=== PATIENT | male | born 1960 | race Asian ===

== ENCOUNTER → 2020-01-21 17:53 | Outpatient (CLI) | payer OTHER, SELFPAY ==
--- NOTE | 2020-01-21 17:57 | DI.MRI.S_ITS ---
PROCEDURE: MR KNEE LT WO CON INDICATIONS: UNILATERAL PRIMARY OSTEORHRITIS LEFT KNEE TECHNIQUE: Noncontrast sagittal PD fast spin echo and T2 fast spin echo with fat saturation, sagittal 3-D FLASH with fat saturation; coronal T1 spin echo and PD fast spin echo with fat saturation, and axial PD fast spin echo with fat saturation through the knee. COMPARISON: [facility], MR, KNEE WITHOUT CONTRAST, 11/29/2016, 12:06. FINDINGS: Image quality: Excellent. Menisci: There is signal abnormality and contour irregularity involving body and posterior horn of medial meniscus extending to both superior and inferior articulating surfaces suggestive of complex tear. Peripheral displacement of medial meniscus bowing medial collateral ligament is also seen. Oblique tear involving anterior horn of lateral meniscus is seen extending to inferior articulating surface. The meniscal root ligaments appear intact. Cruciate ligaments: The anterior and posterior cruciate ligaments appear intact. Medial structures: Low-grade MCL sprain is seen. The posterior oblique ligament, semimembranosus tendon insertions, oblique popliteal ligament, and meniscocapsular junction appear intact. Visualized portions of the pes anserinus tendons appear normal. No abnormal bursal fluid. Lateral structures: There is low to moderate grade LCL sprain/partial-thickness tear near its femoral insertion. The long and short heads of the biceps femoris tendon appear intact. The popliteus tendon appears normal; the popliteofibular ligament appears intact. The posterosuperior and anteroinferior popliteomeniscal fascicles appear intact. The arcuate and fabellofibular ligaments appear intact, on either side of the lateral inferior geniculate artery. Iliotibial band appears normal. Anterior structures: The quadriceps and patellar tendons appear intact. Patellar alignment is normal. No femoral trochlear dysplasia or ventral trochlear prominence. No edema in the infrapatellar fat pad. Bones and cartilage: Moderate tricompartmental osteoarthritis and chondromalacia is seen most prominent in medial femoral tibial compartment. No fracture or dislocation. Joint space: There is small amount of joint fluid. Small calcifications are seen in posterior aspect of knee joint and measures up to 1.4 x 0.9 cm in size suggestive of small loose bodies. No Landry's cyst. Normal appearing synovial plicae are incidentally noted. IMPRESSION: 1. Moderate tricompartmental osteoarthritis and chondromalacia of most prominent in medial femoral tibial compartment. No fracture or dislocation. Small amount of joint effusion. Suggestion of small intra-articular loose bodies in posterior aspect of knee joint as above. 2. Complex tear involving body and posterior horn of medial meniscus extending to both superior and inferior articulating surfaces. Oblique tear involving anterior horn of lateral meniscus extending to inferior articulating surface. 3. Cruciate ligaments are intact. Low-grade MCL sprain. Low to moderate grade proximal LCL sprain/partial-thickness tear. Dictated by: Luis Coffman M.D. on 01/24/2020 at 8:40 Approved by: Luis Coffman M.D. on 01/24/2020 at 8:54
== END ==
PROVIDERS: PCP Family Medicine; Referring Provider Orthopaedic Surgery; Visit Provider Orthopaedic Surgery
DX: M17.12 Unilateral primary osteoarthritis, left knee (principal); S83.232A Complex tear of medial meniscus, current injury, left knee, initial encounter; S83.282A Other tear of lateral meniscus, current injury, left knee, initial encounter; S83.422A Sprain of lateral collateral ligament of left knee, initial encounter; S83.412A Sprain of medial collateral ligament of left knee, initial encounter; M94.262 Chondromalacia, left knee
CPT/HCPCS: 73721

== ENCOUNTER → 2020-04-24 11:17 | Outpatient (CLI) | payer OTHER, SELFPAY ==
[2020-04-24 13:08] LABS: COVID19 -Nasal RAPID Negative (Negative)
== END ==
PROVIDERS: PCP Family Medicine; Referring Provider Orthopaedic Surgery; Visit Provider Physician Assistant
DX: Z20.822 Contact with and (suspected) exposure to COVID-19 (principal)
CPT/HCPCS: 87635

== ENCOUNTER 2020-04-26 15:04 | Inpatient (IN) | payer OTHER, SELFPAY ==
[2020-04-25] VITALS (17 sets, daily range): BP systolic 87–137; BP diastolic 43–81; PULSE 46–63; RESP 9–18; TEMP 35.9–36.8; O2SAT 92–100; BMI 28.1
--- NOTE | 2020-04-25 06:00 | DI.RAD.S_ITS ---
PROCEDURE: XR KNEE LT 1TO2V INDICATIONS: L TKA TECHNIQUE: 2 view(s) of the knee acquired. COMPARISON: [facility], , KNEE 1-2 VIEWS RIGHT, 05/06/2017, 13:49. FINDINGS: Bones: Patient is status post knee joint arthroplasty. Hardware components are in expected positions. Visualized bony structures are intact. Soft tissues: Overlying postoperative changes are noted. IMPRESSION: Expected immediate postoperative appearance of left TKA. Dictated by: Obey Aguilar [facility] Interpreted: Luis Coffman MD on 04/25/2020 at 16:06 Approved by: Luis Coffman M.D. on 04/25/2020 at 16:39
[2020-04-25] MEDS: ACETAMINOPHEN 325 MG TABLET 975 MG PO (11:42)
[2020-04-25] MEDS: PREGABALIN 75 MG CAPSULE PO (11:42)
[2020-04-25] MEDS: VANCOMYCIN 1,000 MG/200 ML PIGGYBACK 200 MG IV (11:44)
--- NOTE | 2020-04-25 12:12 | P.OP_ITS ---
Operative Date/Time/Diagnoses Date of procedure: 04/25/20 Time of procedure: 12:59 Pre-op diagnosis: left knee OA Post-op diagnosis: same Procedure & Clinicians Procedure: Left total knee replacement Same procedure as scheduled: Yes Indications: The patient has had progressively worsening left knee pain with radiographic changes consistent with arthritis. Non-operative management has failed and the patient has requested total knee replacement. The risks, benefits and alternatives to surgery were discussed with the patient prior to proceeding. Risks discussed included, but were not limited to, failure to relieve pain, stiffness, infection, nerve damage, deep venous thrombosis, pulmonary embolism, stroke, coma, heart attack, permanent paralysis and , as well as the potential need for eventual revision of the prosthetic. Surgeon: Smiley Mathis Health Management Consultant: Sesar Conde Anesthesia Type: General and Spinal Operative Notes Findings: severe left knee arthritis, good stability Closure Type: primary Specimen(s): none sent Prosthetic devices, grafts, tissues, transplants, or devices: [facility] 2 size 6 femur, size 6 tibia, 38 mm patella, 10 mm poly Applied: drain(s) Estimated Blood Loss (mL): 250 Blood products transfused: none Tourniquet time (min): 72 Procedure in detail: The patient was seen in the pre-operative area, where the patient identified the left knee as the operative site and this was marked with my initials. The patient received pre-operative antibiotics, and was taken to the operating room and placed on the operative table in the supine position. After satisfactory anesthesia, a motion and time study teacher out was performed. The left leg was encircled with a tourniquet about the proximal thigh, and the leg was prepared from the toes to the tourniquet with ChloroPrep in the usual fashion and draped through sterile drapes. The leg was elevated and exsanguinated with Eschmark bandage and the tourniquet inflated to [250] mmHg pressure. The knee was approached through an approximately 18 cm incision centered over the patella and carried into the knee through a medial parapatellar arthrotomy. A portion of the medial and lateral meniscus was resected. Soft tissue was carefully mobilized around the patella the patella was measured with a caliper. Bone was resected from the patella and the patellar height was reconstituted with up an appropriate sized patellar component. A cover was then placed on the patella. A small amount of additional medial and lateral meniscus was resected. The visionare guide fit well to the distal femur. It looked like an appropriate distal femoral cut and the cut was made without difficulty. The rotation was assessed and the appropriate size femoral guide was placed on the distal femur and finishing cuts were made. There was no evidence of notching. The anterior, posterior and chamfer cuts were then made. The posterior osteophytes and soft tissues were then removed. The posterior capsule was injected with part of a mixture of 60 ml 0.25% Marcaine mixed with 20 ml Exparel for post operative pain control. The remainder of this mixture was injected into the capsule and subcutaneous tissues during cement curing. The tibia was prepared and the visionaire guide fit well to the distal tibia. The rotation was assessed. The patient was placed in extension residual medial and lateral meniscus as well as any residual bone was carefully resected. [2mm] additional tibia was resected. Hemostasis was achieved especially posteriorly. Additional local was injected into the posterior capsule. The extension gap was assessed and additional releases for gap balancing were performed as necessary. It was checked with the gap water and sewer systems superintendent. An 18 gauge needle was used to slightly loosen the MCL which was tight. The femoral component was trial was placed and the notch was finished. Trial tibial and femoral components were then placed and the knee placed through a range of motion. Range of motion was [0-130], with good stability throughout the range. The trials were then removed, and the tibia was finished. The bone was prepared with pulsatile lavage, and dried with a sponge. Cement was applied and the final prosthetics placed. Excess cement was removed during and after cement curing. A brief Betadine soak was performed. After confirming there was no extruded cement posteriorly, the final tibial insert was placed. The knee was copiously irrigated and the tourniquet deflated. Hemostasis was obtained with the bovie. A drain was placed and brought out superolaterally. The capsule was closed with interrupted vicryl suture. The subcutaneous layer was closed with barbed sutures, and the skin with a running 3-0 V-Lock suture and Surgical glue. An Aquacel Ag dressing was applied and the patient was taken to recovery having tolerated the procedure well. Complications: none Post-operative Condition: stable Disposition: Acute Care Plan for aftercare: The patient will be maintained on a standard total knee replacement protocol with weight bearing as tolerated. The patient will receive Aspirin and sequential compression devices for DVT prophylaxis. The patient will be discharged home when safe for the home environment.
--- NOTE | 2020-04-25 12:12 | PM.PREOP ---
Pre-operative Note COVID-19 COVID-19 status: Negative Interval Note History & Physical reviewed/Exam performed by Physician: Yes Changes to H&P: No
--- NOTE | 2020-04-25 12:57 | SUR.OPER ---
Supine on padded OR bed. Pillow under head, arms secured on padded armboards <90 degree abduction. Safety belt across torso. Non-operative leg secured with tape over blanket over lower leg. Operative leg secured in DeMayo/Damien positioner. Foam padded brace at thigh of operative leg.
[2020-04-25] MEDS: CEFAZOLIN 2 GM/100 ML FROZ.PIGGY IV ×2 (13:10→20:27)
[2020-04-25] MEDS: BUPIVACAINE 0.25% W/ EPI (PF) 10 ML VIAL 20 ML INJ (13:51)
[2020-04-25] MEDS: TRANEXAMIC ACID 1,000 MG VIAL 2000 MG INJ ×2 (13:52→15:15)
[2020-04-25] MEDS: BUPIVACAINE LIPOSOME 266 MG/20 ML VIAL INJ (13:52)
[2020-04-25] MEDS: LACTATED RINGERS 1,000 ML 150 ML IV (16:03)
[2020-04-25] MEDS: LACTATED RINGERS 1,000 ML 100 ML IV (17:00)
[2020-04-25] MEDS: ONDANSETRON 4 MG/2 ML INJ IV ×2 (17:09→22:48)
[2020-04-25] MEDS: METFORMIN HCL 500 MG TABLET PO (17:51)
[2020-04-25] MEDS: hydrOXYzine pamoate 25 MG CAPSULE PO (17:51)
[2020-04-25] MEDS: ASPIRIN EC 81 MG TABLET PO (20:27)
[2020-04-25] MEDS: ATORVASTATIN 20 MG TABLET PO (20:27)
[2020-04-25] MEDS: IBUPROFEN 400 MG TABLET PO (20:27)
[2020-04-25] MEDS: DOCUSATE 100 MG CAPSULE PO (20:28)
[2020-04-25] MEDS: ACETAMINOPHEN 325 MG TABLET 650 MG PO (20:28)
[2020-04-25] MEDS: CELECOXIB 200 MG CAPSULE PO (22:12)
--- NOTE | 2020-04-25 23:12 | PC.NURSE ---
bladder scan around 2200, approx 499cc in the bladder. pt has been trying to urinate, but unable to void. pt refused in and out cath repeatedly. at this time pt is in the bathroom trying to void, and is refusing in and out cath. at bedside. pt became nauseous when he got up, administered zofran.
[2020-04-26] MEDS: IBUPROFEN 400 MG TABLET PO ×2 (00:55→04:52)
[2020-04-26] MEDS: hydrOXYzine pamoate 25 MG CAPSULE PO (01:02)
--- NOTE | 2020-04-26 01:19 | PC.NURSE ---
Addendum entered by Shane Ruvalcaba R.N. 04/26/20 02:20: Call to Dr. Cano regarding blood loss via hemovac. Pt's total hemovac output = 450mL (125mL on evening shift, 325mL NOC shift). Orders rec'd to release suction from hemovac until the morning. Pt's VSS, asymptomatic Original Note: pt straight cath'ed at 0015 for 500mL. Tolerated well.
[2020-04-26 01:50] VITALS: BP 109/73; PULSE 62; RESP 16; O2SAT 94
[2020-04-26] MEDS: LACTATED RINGERS 1,000 ML 100 ML IV (02:42)
[2020-04-26] MEDS: CEFAZOLIN 2 GM/100 ML FROZ.PIGGY IV (04:58)
[2020-04-26 05:00] VITALS: BP 154/65; PULSE 78; RESP 18; TEMP 36.3; O2SAT 98
[2020-04-26] MEDS: OXYCODONE IR 5 MG TABLET PO ×2 (05:17→15:38)
[2020-04-26 05:58] LABS: Hematocrit 35.7 % (41-53); Hemoglobin 11.8 g/dL (13.5-17.5)
--- NOTE | 2020-04-26 07:17 | PM.PNPO.1 ---
Subjective Subjective Date Patient Seen: 04/26/20 Time Patient Seen: 07:17 Interval history: Patient's pain is [id number]. Denies fever or chills. No nausea or vomiting. Had difficulty voiding overnight requiring straight catheterization x2. No history of urinary retention. is home to assist him. Otherwise without complaints. Exam Vital Signs (past 8 hours): - 04/25/20 23:34 04/26/20 01:50 04/26/20 05:00 Temperature 97.3 F L 97.3 F L Pulse Rate 56 L 62 78 Respiratory Rate 18 16 18 Blood Pressure 137/81 109/73 154/65 H Pulse Oximetry 100 94 98 Oxygen Delivery Method Room Air Oxygen Flow Rate 0 Narrative Exam Narrative: 59-year-old male resting comfortably in bed in no apparent distress. Left knee dressing is clean, dry and intact. Motor functions intact distally. Sensation grossly intact to light touch distally. Objective Labs Result Diagrams: 04/26/20 05:14 Labs: Laboratory Results - last 24 hr 04/26/20 05:14 Hgb 11.8 L Hct 35.7 L PFSH Medical History Arthritis Chronic low back pain Diabetes Elevated cholesterol Hearing loss Insomnia Plantar fasciitis of right foot Shoulder pain, bilateral Sleep apnea Unilateral primary osteoarthritis, left knee Vitamin D deficiency Surgical History History of carpal tunnel release of both wrists S/P epidural steroid injection S/P trigger finger release Social History household members: spouse and children Smoking Status: Former smoker alcohol intake: current Assessment & Plan Post-op Postoperative Procedures: Procedures Operation Date: 04/25/20 13:15 Actual Procedures Side Surgeon p Total Knee Arthroplasty Left Smiley Mathis MD postop day 1 status post left total knee arthroplasty. Patient progressing as expected. Mobilize with physical therapy. Urinary retention, start Flomax 1 tab daily likely discharge home today.
[2020-04-26 08:00] VITALS: O2SAT 97
[2020-04-26] MEDS: METFORMIN HCL 500 MG TABLET PO ×2 (08:33→18:05)
[2020-04-26] MEDS: CHOLECALCIFEROL (VITAMIN D3) 1,000 UNIT TABLET 2000 UNIT PO (08:33)
[2020-04-26] MEDS: ASPIRIN EC 81 MG TABLET PO (08:34)
[2020-04-26] MEDS: TAMSULOSIN 0.4 MG CAPSULE PO (08:34)
[2020-04-26] MEDS: DOCUSATE 100 MG CAPSULE PO (08:34)
[2020-04-26] MEDS: ASCORBIC ACID 500 MG TABLET 1000 MG PO (08:34)
[2020-04-26] MEDS: ACETAMINOPHEN 325 MG TABLET 650 MG PO ×2 (08:34→15:37)
--- NOTE | 2020-04-26 10:26 | PT.IIE ---
Current Diagnoses Unilateral primary osteoarthritis, left knee (04/25/20) Surgery Performed Operation Date: 04/25/20 13:15 Actual Procedures p Total Knee Arthroplasty(Left) - Smiley Mathis MD Surgical History (Last Reviewed 04/26/20 @ 07:18 by Sesar Conde PA-C) History of carpal tunnel release of both wrists S/P epidural steroid injection S/P trigger finger release Medical History (Last Reviewed 04/26/20 @ 07:18 by Sesar Conde PA-C) Arthritis Chronic low back pain Diabetes Elevated cholesterol Hearing loss Insomnia Plantar fasciitis of right foot Shoulder pain, bilateral Sleep apnea Unilateral primary osteoarthritis, left knee Vitamin D deficiency Physical Therapy Inpatient Evaluation/Re-Eval M1 PT/OT-IP Prior Functional Status Start: 04/26/20 08:33 Freq: NEEDED Status: Active Protocol: Document 04/26/20 10:07 (Rec: 04/26/20 10: [id number]) Medical Review Prior Functional Status Medical History Reviewed Yes Diet/Fluid Consistency Regular Communication no deficits noted. able to make needs known Mobility and Gait IND without AD. Able to walk for a mile with his dog but slowly. Difficulty with stair climbing Activities of Daily Living and IADL's IND for all ADLs and IADLs. able to drive. Prior Functional Level (Other details) had R TKA 2018 Social History Household Members spouse,children Living Arrangements House Number of Floors (Floors) One Floor Number of Stairs To Enter/Railing? 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 He lvies with his and 2 children who are in their 20s. They will be available to assist. Pt will go to [facility] for rehab M2 PT-IP Current Condition Start: 04/26/20 08:33 Freq: NEEDED Status: Active Protocol: Document 04/26/20 10:07 (Rec: 04/26/20 10:26 [email or web address]) Physical Therapy Current Condition Current Condition Evaluation Date 04/26/20 Treatment Diagnosis L TKA, difficulty in walking Onset Date 04/25/20 Weight Bearing Status Weight Bearing Status Weight Bear as Tolerated M3 PT-IP Subjective Start: 04/26/20 08:33 Freq: NEEDED Status: Active Protocol: Document 04/26/20 10:07 (Rec: 04/26/20 10:26 [email or web address]) Subjective Physical Therapy Visit Type Type Initial Evaluation Visit Start Time 09:05 Visit Stop Time 09:30 Total Visit Minutes 25 Notes attended session Number of JEWELRY JOBBER Visits 0 Physical Therapy Visit Comments Patient Comments lets get this done! Patient Goals to return home safely with his family Therapy Pain Assessment Pain When Pain Assessed During Mobility Pain Present Pain Present Pain Reported Location L knee Intensity 6 Scale Used Numeric (0 - 10) Description Acute Pain Management Techniques Apply Cold,Timing of Activity with Medications M4 PT-IP Mobility and Gait Start: 04/26/20 08:33 Freq: NEEDED Status: Active Protocol: Document 04/26/20 10:07 (Rec: 04/26/20 10:26 [email or web address]) PT-Transfer Assessment Sit to and From Stand Sit to and from Stand Contact Guard Assistance,Use of Upper Extremities Equipment Transfer Assistive Device Gait Belt,Front Wheeled Walker Orthotic/Prosthetic Devices or Brace: No Transfers Transfer Destination Bed Transfer Technique Stand Step Pivot Transfer Ability Level of Assist Contact Guard Assistance,Use of Upper Extremities Comments Mobility Comments pt was up next to sink counter doing self care with CGA upon PT arrival. Pt has been having difficulty voiding since sx. Pain at 6/10. He agrees to mobilize with PT. Pt then amb with FWW to hallway. Pt amb with step to pattern with limited L knee flexion during swing phase. Mod antalgic gait with flexed trunk noted. Pt completed [address] first slowly CGA. He then completed stair climb 3steps x3 sets with PT and one round with spouse. (see below ) He then amb back to his room and transferred himself to sit at EOB for breakfast. Pt did need cues to keep his walker close during transfer. Checked pt L knee AROM = 10-60 degrees d/t pain. Left pt with for breakfast. call lgith placed withn reach./ Gait Assessment Gait Gait Assistance Required: Contact Guard Assist Distance (Feet) 200 Able to Maintain Weight Bearing Status Yes During Gait Assistive Devices Assistive Device Gait Belt,Front Wheeled Walker Orthotic/Prosthetic Devices or Brace: No Gait Deviations General Gait Pattern Antalgic,Decreased Stride Length,Decreased Feet Clearance,Flexed Trunk,Step-to Gait Factors Limiting Gait Function Factors Limiting Gait Function Decreased Activity Tolerance, Decreased Strength,Limited Range of Motion,Pain,Poor Balance Comments Gait Comments see mobility Stair Climbing Assessment Evaluation Level of Assist On Stairs Moderate Assistance,1 Person Assistance Devices Stair Climbing Assistive Devices Left Railing Technique/Endurance Stair Climbing Direction Ascend and Descend Stair Climbing Technique Step to Step Number of Steps Climbed 3 Query Text: Stair Climbing Set # Repetitions (reps) 3 Comments Stair Climbing Comments 1st set: pt completed with 2 rails to ascend and R rail to descend laterally ( step to pattern) . Pt was unsteady and had difficulty fully WB on LLE 2nd set: pt completed with L rail and R REGULATORY LEAD from PT to ascend and R rail to descend laterally 3rd set : Pt completed it with L rail and R arm around spouse's shoulder to ascend with very good stability. Spouse then min A with gait belt for pt to use R rail to descend laterally. PT-Balance Assessment Sitting Balance and Reactions Static Sitting Balance Ability Normal Dynamic Sitting Balance Ability Normal Standing Balance and Reactions Static Standing Balance Ability Good Dynamic Standing Balance Ability Good Device Used FWW M5 PT-IP Objective Assessments Start: 04/26/20 08:33 Freq: NEEDED Status: Active Protocol: Document 04/26/20 10:07 (Rec: 04/26/20 10:26 [email or web address]) Orientation Orientation/Cognition Level of Alertness Alert Orientation Name,Age,Birthday,Month,Date, Year,Day of Week,Place, Situation Language Function Ability No Deficits Noted Safety Awareness Understands Safety Issues Memory Description No Deficits Noted Gross Range of Motion Upper Extremity ROM Assessment Within Functional Limits Lower Extremity ROM Assessment Left Impaired Impairments 10-60 L knee AROM Strength Upper Extremity Strength Assessment Within Functional Limits Lower Extremity Strength Assessment Left Impaired Hip 4+/5 Knee 3-/5 Coordination Assessment Gross Coordination Gross Coordination WNL M6 PT-IP Treatment Start: 04/26/20 08:33 Freq: NEEDED Status: Active Protocol: Document 04/26/20 10:07 (Rec: 04/26/20 10:26 [email or web address]) Physical Therapy Treatment Exercises Exercises Ankle Pumps,Gluteal Sets,Quad Sets,Heel Slides Education Education Provided Precautions,Weight Bearing Status,Post-Op Packet,Safety M7 PT-IP Assessment and Plan Start: 04/26/20 08:33 Freq: NEEDED Status: Active Protocol: Document 04/26/20 10:07 (Rec: 04/26/20 10:26 [email or web address]) PT Summary Assessment and Plan Potential Rehabilitation Potential Excellent Status of Condition at Evaluation Stable Summary Impairments Pain,ROM,Strength,Balance,Bed Mobility,Transfers,Gait, Activity Tolerance Progress Towards Goals Safe For Discharge Assessment Summary pt is a 59 healthy male s/p POD 1 L TKA. PLOF= totally IND for all mobility and ADLs/ IADLs. 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 CLOF= pt has not been voiding since surgery but his mobility is safe with CGA for both amb and transfers. was able to demonstrate good technique to assist pt climb 3 steps safely . Pt is ready to be d/c home with family assistance and outpatient therapy. Will cont to work with pt if he stays here. Goals Bed Mobility Goal Standby Assistance Transfer Goal Standby Assistance,Front Wheeled Walker Gait Goal Standby Assistance,Front Wheel Walker Gait Distance 300 Other Goals 3STE with L rail Days to Meet Goals 2 Frequency of Treatment Frequency Of Treatment Twice a Day Treatment Plan Physical Therapy Treatment Plan Bed Mobility Training,Transfer Training,Gait Training, Therapeutic Exercise,Balance Retraining,Post Op Education, Discharge Planning,Hot or Cold Pack,Neuromuscular Re-ed Other Recommendations and Next Treatment mobility as valerie Focus cont stair climbing Recommendations To Nursing Amount of Assist Needed 1 Person Assist Discharge Recommendations PT Discharge Recommendations Home with Assistance, Outpatient PT Transportation Needs at Discharge Private Vehicle
[2020-04-26 10:58] VITALS: BP 103/71; PULSE 97; RESP 15; TEMP 36.8; O2SAT 96
--- NOTE | 2020-04-26 11:22 | PM.DS.1 ---
History of Present Illness History of Present Illness Date Patient Seen: 04/26/20 Time Patient Seen: 11:23 Chief complaint: OPB Narrative: Patient was able to urinate on his own. Patient mobilize well with physical therapy. Patient is stable for discharge home today. Patient's is home to assist him. Discharge Providers Provider Discharge Date: 04/26/20 Primary care physician: Adia Fair DO Consults: 04/17/20 10:55 Consult to Respiratory Therapy Evaluate & Treat Comment: will bring CPAP Physician Instructions: Evaluate and treat 04/25/20 06:00 Consult to Anesthesiology Routine Comment: Consulting Provider: Anesthesiologist Reason for consultation: Regional block for post operative pain control 04/25/20 16:44 Consult to Discharge Planning Routine Comment: Consult to Physical Therapy Evaluate & Treat Comment: Physician Instructions: postop TKA protocol Consult to Respiratory Therapy Evaluate & Treat Comment: Physician Instructions: Evaluate and treat Discharge provider: Sesar Conde PA-C Summary Hospital Course Discharge Diagnosis: Left knee OA Hospital Course: [address] [id number] Note Patient: Cris Ng PMR#: [id number]: 9Acct:[id number]/Sex: 59 / M Date of Service: 04/25/20Provider: Smiley Mathis MD Operative Date/Time/Diagnoses Date of procedure: 04/25/20 Time of procedure: 12:59 Pre-op diagnosis: left knee OA Post-op diagnosis: same Procedure & Clinicians Procedure: Left total knee replacement Same procedure as scheduled: Yes Indications: The patient has had progressively worsening left knee pain with radiographic changes consistent with arthritis. Non-operative management has failed and the patient has requested total knee replacement. The risks, benefits and alternatives to surgery were discussed with the patient prior to proceeding. Risks discussed included, but were not limited to, failure to relieve pain, stiffness, infection, nerve damage, deep venous thrombosis, pulmonary embolism, stroke, coma, heart attack, permanent paralysis and , as well as the potential need for eventual revision of the prosthetic. Surgeon: Smiley Mathis Geotechnical Operating Engineer: Sesar Conde Anesthesia Type: General and Spinal Operative Notes Findings: severe left knee arthritis, good stability Closure Type: primary Specimen(s): none sent Prosthetic devices, grafts, tissues, transplants, or devices: Mathis and Nepharistides Mendoza BCS 2 size 6 femur, size 6 tibia, 38 mm patella, 10 mm poly Applied: drain(s) Estimated Blood Loss (mL): 250 Blood products transfused: none Tourniquet time (min): 72 Patient progressing as expected status post left total knee arthroplasty. Patient had difficulty urinating and required straight catheterization x2. Patient placed on Flomax and was able to urinate on his own this morning. Will discharge him with Flomax. Status at Discharge Cognitive/behavioral status at discharge: at baseline, oriented Functional status at discharge: uses cane/walker Overall status at discharge: patient is progressing back to baseline Time Spent with Patient Time spent: Less than 30 minutes Exam Vital Signs (past 8 hours): - 04/26/20 05:00 04/26/20 10:58 Temperature 97.3 F L 98.2 F Pulse Rate 78 97 H Respiratory Rate 18 15 Blood Pressure 154/65 H 103/71 Pulse Oximetry 98 96 Oxygen Delivery Method Room Air Oxygen Flow Rate 0 Narrative Exam Narrative: See progress note Objective Labs Result Diagrams: 04/26/20 05:14 Labs: Laboratory Results - last 24 hr 04/26/20 05:14 Hgb 11.8 L Hct 35.7 L PFSH Medical History Arthritis Chronic low back pain Diabetes Elevated cholesterol Hearing loss Insomnia Plantar fasciitis of right foot Shoulder pain, bilateral Sleep apnea Unilateral primary osteoarthritis, left knee Vitamin D deficiency Surgical History History of carpal tunnel release of both wrists S/P epidural steroid injection S/P trigger finger release Social History household members: spouse and children Smoking Status: Former smoker alcohol intake: current Discharge Assessment & Plan Assessment and Plan Assessment: Progressing as expected. Plan of Treatment: Discharge home today. Discharge Plan Discharge Plan Patient Disposition: Home Provider Discharge Comment: DC home today after PT Discharge orders & Medications Discharge Orders: Discharge (Order); Ordered 04/26/20 Ordered By: Sesar Conde Prescriptions: New acetaminophen 325 mg Tablet 650 mg PO TID Qty: 60 RF: 0 polyethylene glycol 3350 17 gram Powder In Packet 17 gm PO DAILY PRN (Reason: Constipation) Qty: 20 RF: 0 aspirin 81 mg Tablet,Delayed Release (Dr/Ec) 81 mg PO BID Qty: 60 RF: 0 tamsulosin [Flomax] 0.4 mg Capsule 0.4 mg PO DAILY Qty: 5 RF: 0 ibuprofen 400 mg Tablet 400 mg PO Q4HR Qty: 90 RF: 0 docusate sodium [DOK] 100 mg Capsule 100 mg PO BID Qty: 20 RF: 0 hydroxyzine pamoate 25 mg Capsule 25 mg PO Q6HR PRN (Reason: Nausea) Qty: 30 RF: 0 Continued metformin 500 mg Tablet 500 mg PO BID RF: 0 atorvastatin [Lipitor] 20 mg Tablet 20 mg PO BEDTIME RF: 0 cetirizine [Zyrtec] 10 mg Tablet 10 mg PO DAILY PRN (Reason: Allergies) RF: 0 Vitamin C 1,000 mg Tablet Extended Release 1,000 mg PO DAILY RF: 0 allopurinol 100 mg Tablet 100 mg PO DAILY RF: 0 fluticasone propionate 50 mcg/actuation [place],Suspension 2 spray INTRANASAL DAILY RF: 0 cholecalciferol (vitamin D3) [Vitamin D3] 50 mcg (2,000 unit) Capsule 50 mcg PO DAILY RF: 0 Discontinued celecoxib [Celebrex] 200 mg Capsule 200 mg PO BID PRN (Reason: Pain) RF: 0 ibuprofen [Motrin] 800 mg Tablet 800 mg PO TID PRN (Reason: Pain) RF: 0 aspirin 81 mg Tablet 81 mg PO DAILY RF: 0 acetaminophen [Tylenol Extra Strength] 500 mg Capsule 1,000 mg PO QID PRN (Reason: Pain) RF: 0 Follow up/Referrals: Adia Fair DO [Primary Care Provider] - Smiley Mathis MD [Physician] - (2 weeks) Diet/Activity/Treatments Diet: Diet as Tolerated Activity: ambulate multiple times a day. Cold/Heat Therapy: Use ice multiple times a day. Skin/Wound/Dressing Care Report to your healthcare provider any signs of infection, such as:: chills, fever, night sweats, increased pain, unusual drainage and unusual redness Dressing: Remove Audi wrap. Okay to shower. Leave the dressing on. Visit Report/Discharge Packet Instructions: DI for Knee Replacement, DI for Constipation, How to Prevent Falls Stand Alone Forms: Surgery Discharge Discharge Data Primary Care Provider: Adia Fair Attending Provider: Smiley Mathis
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
[2020-04-26 14:01] LABS: Add Manual Diff / Slide Review NO; Basophils Absolute Auto 0 /uL (0-100); Basophils Percent Auto 0.4 % (0-2); Eosinophils Absolute Auto 100 /uL (0-450); Eosinophils Percent Auto 1.1 % (2-4); Hematocrit 32.1 % (41-53); Hemoglobin 10.8 g/dL (13.5-17.5); Lymphocytes Absolute Auto 800 /uL (1100-4500); Lymphocytes Percent Auto 11.2 % (25-40); Mean Corpuscular HGB Conc 33.7 % (30-36); Mean Corpuscular Hemoglobin 33.4 PG (26-34); Mean Corpuscular Volume 99.1 fL (80-100); Monocytes Absolute Auto 700 /uL (0-900); Monocytes Percent Auto 10.5 % (3-14); Neutrophils Absolute Auto 5400 /uL (1500-7000); Neutrophils Percent Auto 76.8 % (50-75); Platelet Count 192 X10^3/uL (150-400); Red Blood Cell Count 3.24 X10^6/uL (4.5-5.9); Red Cell Distribution Width 13.8 % (11.6-14.8)
[2020-04-26] MEDS: allopurinoL 100 MG TABLET PO (15:38)
[2020-04-26 15:39] VITALS: BP 105/67; PULSE 89; RESP 14; TEMP 36.8; O2SAT 99
--- NOTE | 2020-04-26 15:51 | PC.NURSE ---
Ortho/: Unable to void this am, started flomax. Later he was finally able to void 700mls, and has since then been voiding w/out problems. Ortho - pain is controlled and has been able to work w/PT. Pt then was going through the discharge process. Hemovac had out 540mls overnight and the nurse had called MD to make aware during noc shift, order to leave hemovac uncompressed. Hemovac was not compressed this am and still drained an additional 100mls. Hemovac was removed per MD's order. Pressure was applied to site directly for 15 mins and was still bleeding. Compression dressing applied and BILLY Morris was called. She ordered cbc and pt did have a sl driftdown in his hh. Later BILLY Morris arrived and pressure dressing was saturated but had stopped bleeding for now. New pressure dressing was applied by BILLY Morris. Pt to have a dressing check and change at 1800. See orders from BILLY. If dressing has spots of drainage can go home, but if it is saturated he is to stay another day. Pt understands same. is here and aware of changes.
[2020-04-26] MEDS: CELECOXIB 200 MG CAPSULE PO (18:05)
--- NOTE | 2020-04-26 18:55 | PC.NURSE ---
Per verbal orders Via Harriet Morris and written by Sesar Conde, Patient is well to d/c today if cleared by PT and bleeding has stopped from HV site. Compression drg. was removed and there was no blood noted on drg. Patient's aquacel drg. was removed and replaced per Dr. Cano's verbal orders as there was concerns for bleeding and saturation of drg. Drg. was found to be CDI. D/c teaching done with patient and at bedside. Patient states understanding of teaching. RX's are already filled and at home. Patient didn't have IV access, it was removed by day nurse. Patient belongings were placed in bags and taken down by spouse and OPTIMIZATION CONSULTANT. Patient escorted down to personal vehicle via WC. patient left in stable condition, VSS.
== END 2020-04-26 18:27 | disposition home or self-care (01) | DRG 470 ==
LOC: OR 15:47 → AC 15:47
PROVIDERS: Physician Assistant Surgical; Admitting Provider Orthopaedic Surgery; PCP Family Medicine; Referring Provider Orthopaedic Surgery; Visit Provider Orthopaedic Surgery
PROC: 0SRD0JZ Replacement of Left Knee Joint with Synthetic Substitute, Open Approach (ICD-10-PCS; CPT 27447; principal; 2020-04-25 13:15)
DX: M17.12 Unilateral primary osteoarthritis, left knee (principal); G47.30 Sleep apnea, unspecified; E11.9 Type 2 diabetes mellitus without complications; F32.9 Major depressive disorder, single episode, unspecified; Z87.891 Personal history of nicotine dependence; Z79.84 Long term (current) use of oral hypoglycemic drugs; R33.9 Retention of urine, unspecified
CPT/HCPCS: 36415; 73560; 82962; 85014; 85018; 85025; 97161; C1776; C9290; J0690; J2250; J2274; J2405; J2704; J2765; J3010